=== PATIENT | female | born 1960 | race Caucasian/White ===

== ENCOUNTER 2019-07-04 08:10 | Outpatient (CLI) | payer MEDICARE, MEDICAID, SELFPAY ==
--- NOTE | 2019-07-04 08:34 | USCV_ITS ---
Yulisa Velasco Age: 58 Gender: F : 1960 Exam Date: 07/04/2019 08:49 Ordering Phys: Geno Davis MD Technologist: Hue Rothman [place] [facility] [place] CHF BP: 132 / 68 HR: 74 Rhythm: Sinus Technical Quality: Poor because of body habitus MEASUREMENTS (Male / Female) Normal Values 2D ECHO LV Diastolic Diameter PLAX 3.3 cm 4.2 - 5.9 / 3.9 - 5.3 cm LV Systolic Diameter PLAX 2.7 cm LV Chamber Size 3.6 cm IVS Diastolic Thickness 1.8 cm 0.6 - 1.0 / 0.6 - 0.9 cm IVS Systolic Thickness 2.1 cm LVPW Diastolic Thickness 1.1 cm 0.6 - 1.0 / 0.6 - 0.9 cm LVPW Systolic Thickness 1.5 cm RV Chamber Size 2.1 cm LVOT Diameter 2.0 cm LV Ejection Fraction 2D Teich 35.0 % LV Ejection Fraction MOD 2C 69.2 % LV Ejection Fraction 2C AL 69.9 % LA Diameter 4.2 cm LA Width 2.9 cm LA Height 4.7 cm RA Width 2.5 cm RA Height 3.9 cm Aorta at Sinotubular Diameter 2.7 cm M-MODE LV Diastolic Diameter MM 4.3 cm 4.2 - 5.9 / 3.9 - 5.3 cm LV Systolic Diameter MM 2.6 cm LV Ejection Fraction MM Teich 68.3 % IVS Diastolic Thickness MM 1.3 cm 0.6 - 1.0 / 0.6 - 0.9 cm IVS Systolic Thickness MM 1.7 cm LVPW Diastolic Thickness MM 1.1 cm 0.6 - 1.0 / 0.6 - 0.9 cm LVPW Systolic Thickness MM 1.0 cm Aortic Annulus Diameter 3.0 cm LA Ao Ratio MM 1.4 DOPPLER AV Peak Velocity 183.0 cm/s LVOT Peak Velocity 105.0 cm/s AV Area Cont Eq vti 2.7 cm squared AV Area Cont Eq pk 1.8 cm squared MV Area PHT 3.9 cm squared Mitral E to A Ratio 1.4 MV E' Velocity 14.0 cm/s Mitral E to MV E' Ratio 8.3 Mitral E to LV E' Lateral Ratio 8.0 Mitral E to LV E' Septal Ratio 8.7 TR Peak Velocity 147.0 cm/s TR Peak Gradient 8.7 mmHg TV Peak E Velocity 68.0 cm/s Right Atrial Pressure 3.0 mmHg Pulmonary Artery Systolic Pressu 11.6 mmHg PV Peak Velocity 96.0 cm/s RV Acceleration Time 0.1 s RV Ejection Time 0.4 s RV AcT/ET 0.4 FINDINGS Left Ventricle Normal left ventricular size and systolic function, EF 65 %. No regional wall motion abnormalities. Right Ventricle Possibly of normal size ejection fraction Right Atrium Possibly of normal size Left Atrium Possibly of normal size Mitral Valve No gross abnormalities noted Aortic Valve Thickened aortic valve. Tricuspid Valve Not visualized well Pulmonic Valve Not visualized well Pericardium No pericardial effusion. Aorta Normal aortic annulus size. CONCLUSIONS Normal left ventricular size and systolic function, EF 65 %. No regional wall motion abnormalities. Thickened aortic valve. Possibly normal chamber sizes. There itechnically difficult study because of the poor ultrasonic window. s no pericardial effusion. Dr Juan Larson MD FACC (Electronically Signed) Final Date: 05 July 2019 13:50 S
== END 2019-07-04 08:11 | disposition home or self-care (01) ==
PROVIDERS: Family Provider Family Medicine; PCP Family Medicine; Visit Provider Family Medicine
DX: I50.9 Heart failure, unspecified (principal); I35.8 Other nonrheumatic aortic valve disorders
CPT/HCPCS: 93306

== ENCOUNTER → 2019-07-25 09:14 | Outpatient (BNVA) | payer MEDICARE, MEDICAID, SELFPAY | PROVIDERS: Family Provider Family Medicine; PCP Family Medicine; Visit Provider Specialist | DX: M17.11 Unilateral primary osteoarthritis, right knee (principal); M25.561 Pain in right knee; M25.562 Pain in left knee; G89.29 Other chronic pain | CPT/HCPCS: 73560; 73565 ==

== ENCOUNTER 2019-07-27 09:15 | Outpatient (CLI) | payer MEDICARE, MEDICAID, SELFPAY ==
--- NOTE | 2019-07-27 09:27 | MM_ITS ---
WS: [id number] SCREENING DIGITAL MAMMOGRAM WITH CAD HISTORY: SCREENING COMPARISON: 04/20/2018 Bilateral CC and MLO views submitted. Computer aided detection analyzed. Breast composition: There are scattered areas of fibroglandular density. No suspicious masses, microc alcifications or architectural distortion. Benign calcifications near the LEFT nipple. MM/[id number] IMPRESSION: BI-RADS: 2-Benign FOLLOW UP: 1 Year Follow-up
== END 2019-07-27 09:16 | disposition home or self-care (01) ==
LOC: RADSHAW 09:20
PROVIDERS: Family Provider Family Medicine; PCP Family Medicine; Visit Provider Family Medicine
DX: Z12.31 Encounter for screening mammogram for malignant neoplasm of breast (principal)
CPT/HCPCS: 77067

== ENCOUNTER → 2019-08-22 12:30 | Outpatient (BNVA) | payer MEDICARE, MEDICAID, SELFPAY | PROVIDERS: Family Provider Family Medicine; PCP Family Medicine; Visit Provider Nurse Practitioner Psychiatric/Mental Health | DX: F33.1 Major depressive disorder, recurrent, moderate (principal); F41.1 Generalized anxiety disorder; F17.210 Nicotine dependence, cigarettes, uncomplicated | CPT/HCPCS: 99213 ==

== ENCOUNTER → 2019-11-23 07:39 | Outpatient (BNVA) | payer MEDICARE, MEDICAID, SELFPAY | PROVIDERS: Family Provider Family Medicine; PCP Family Medicine; Visit Provider Nurse Practitioner Psychiatric/Mental Health | DX: F33.1 Major depressive disorder, recurrent, moderate (principal); F41.1 Generalized anxiety disorder; F17.210 Nicotine dependence, cigarettes, uncomplicated | CPT/HCPCS: 99213 ==

== ENCOUNTER → 2020-02-22 08:09 | Outpatient (BNVA) | payer MEDICARE, MEDICAID, SELFPAY | PROVIDERS: Family Provider Family Medicine; PCP Family Medicine; Visit Provider Nurse Practitioner Psychiatric/Mental Health | DX: F33.1 Major depressive disorder, recurrent, moderate (principal); F41.1 Generalized anxiety disorder; F17.210 Nicotine dependence, cigarettes, uncomplicated | CPT/HCPCS: 99213 ==

== ENCOUNTER → 2020-03-21 07:42 | Outpatient (BNVA) | payer MEDICARE, MEDICAID, SELFPAY | PROVIDERS: Family Provider Family Medicine; PCP Family Medicine; Visit Provider Nurse Practitioner Psychiatric/Mental Health | DX: F33.1 Major depressive disorder, recurrent, moderate (principal); F41.1 Generalized anxiety disorder; F17.210 Nicotine dependence, cigarettes, uncomplicated | CPT/HCPCS: 99213 ==

== ENCOUNTER → 2020-04-25 07:31 | Outpatient (BNVA) | payer MEDICARE, MEDICAID, SELFPAY | PROVIDERS: Family Provider Family Medicine; PCP Family Medicine; Visit Provider Nurse Practitioner Psychiatric/Mental Health | DX: F33.1 Major depressive disorder, recurrent, moderate (principal); F41.1 Generalized anxiety disorder; F17.210 Nicotine dependence, cigarettes, uncomplicated | CPT/HCPCS: 99213 ==

== ENCOUNTER → 2020-08-07 07:50 | Outpatient (BNVA) | payer MEDICARE, MEDICAID, SELFPAY | PROVIDERS: Family Provider Family Medicine; PCP Family Medicine; Visit Provider Nurse Practitioner Psychiatric/Mental Health | DX: F33.1 Major depressive disorder, recurrent, moderate (principal); F41.1 Generalized anxiety disorder; F17.210 Nicotine dependence, cigarettes, uncomplicated | CPT/HCPCS: 99214 ==

== ENCOUNTER → 2020-08-20 15:30 | Outpatient (BNVA) | payer MEDICARE, MEDICAID, SELFPAY | PROVIDERS: Family Provider Family Medicine; PCP Family Medicine; Visit Provider Specialist | DX: M17.0 Bilateral primary osteoarthritis of knee (principal) | CPT/HCPCS: 73560; 73565 ==

== ENCOUNTER → 2020-09-03 10:16 | Outpatient (BNVA) | payer MEDICARE, MEDICAID, SELFPAY | PROVIDERS: Family Provider Family Medicine; PCP Family Medicine; Referring Provider Specialist; Visit Provider Anesthesiology Pain Medicine | DX: M17.12 Unilateral primary osteoarthritis, left knee (principal); M25.561 Pain in right knee; F17.210 Nicotine dependence, cigarettes, uncomplicated | CPT/HCPCS: 99204 ==

== ENCOUNTER → 2020-09-22 07:37 | Outpatient (BNVA) | payer MEDICARE, MEDICAID, SELFPAY | PROVIDERS: Family Provider Family Medicine; PCP Family Medicine; Visit Provider Nurse Practitioner Psychiatric/Mental Health | DX: F33.1 Major depressive disorder, recurrent, moderate (principal); F41.1 Generalized anxiety disorder; F17.210 Nicotine dependence, cigarettes, uncomplicated | CPT/HCPCS: 99214 ==

== ENCOUNTER → 2020-09-24 12:54 | Outpatient (BNVA) | payer MEDICARE, MEDICAID, SELFPAY | PROVIDERS: Family Provider Family Medicine; PCP Internal Medicine; Visit Provider Anesthesiology Pain Medicine | DX: M17.0 Bilateral primary osteoarthritis of knee (principal) | CPT/HCPCS: 20610; 77002; J1030; J3490 ==

== ENCOUNTER → 2020-10-14 10:05 | Outpatient (BNVA) | payer MEDICARE, MEDICAID, SELFPAY | PROVIDERS: Family Provider Family Medicine; PCP Internal Medicine; Visit Provider Anesthesiology Pain Medicine | DX: M25.561 Pain in right knee (principal); M25.562 Pain in left knee; F17.210 Nicotine dependence, cigarettes, uncomplicated | CPT/HCPCS: 99214 ==

== ENCOUNTER → 2020-10-23 08:15 | Outpatient (BNVA) | payer MEDICARE, MEDICAID, SELFPAY | PROVIDERS: Family Provider Family Medicine; PCP Family Medicine; Visit Provider Nurse Practitioner Psychiatric/Mental Health | DX: F41.1 Generalized anxiety disorder (principal); E66.9 Obesity, unspecified; F33.1 Major depressive disorder, recurrent, moderate; F17.210 Nicotine dependence, cigarettes, uncomplicated | CPT/HCPCS: 99214 ==

== ENCOUNTER → 2020-11-24 07:51 | Outpatient (BNVA) | payer MEDICARE, MEDICAID, SELFPAY | PROVIDERS: Family Provider Family Medicine; PCP Family Medicine; Visit Provider Nurse Practitioner Psychiatric/Mental Health | DX: F33.1 Major depressive disorder, recurrent, moderate (principal); F41.1 Generalized anxiety disorder; F17.210 Nicotine dependence, cigarettes, uncomplicated | CPT/HCPCS: 99214 ==

== ENCOUNTER → 2021-01-07 10:03 | Outpatient (BNVA) | payer MEDICARE, MEDICAID, SELFPAY | PROVIDERS: Family Provider Family Medicine; PCP Family Medicine; Visit Provider Surgery | DX: Z01.812 Encounter for preprocedural laboratory examination (principal); Z20.822 Contact with and (suspected) exposure to COVID-19; K92.1 Melena | CPT/HCPCS: 87635 ==

== ENCOUNTER 2021-01-14 06:58 | Day surgery (SDC) | payer MEDICARE, MEDICAID, SELFPAY ==
[2021-01-12 10:07] VITALS: BMI 59.4
--- NOTE | 2021-01-14 07:23 | ANES.PREANE2 ---
Pre-Anesthetic Assessment Pre-Anesthetic Assessment: Height/Weight: Height 1.57 m Weight 147.418 kg Preop Diagnosis: Bleeding per rectum Proposed Procedure: Operation Date: 01/14/21 08:30 Proposed Procedures p EGD/colon 73684 84704 K92.1(Not Applicable) - Harish Lopez MD s Colonoscopy(Not Applicable) - Harish Lopez MD Was Beta Teresita taken within 24 hours: Yes Was Clonidine taken within 24 hours: N/A Social: Social History: Tobacco and No alcohol Exam: Pre-Anes Outpt Exam: alert, oriented x 3 and regular rate & rhythm Airway: Submandibular: WNL Cervical ROM: WNL MP: 2 Dentition: False Pulmonary: Pulmonary: Asthma and COPD CV/HEM: CV/HEM: HTN Metabolic: Metabolic: Morbid obesity Neuropsych: Neuropsych: Anxiety and Depression Anesthetic Plan: ASA status: 3 Anesthesia: MAC Risk of > 500 ml blood loss (7ml/kg in children): No PFSH Anesthesia PFSH: Medical History (Updated 11/15/20 @ 10:24 by Harish Lopez MD) COPD (chronic obstructive pulmonary disease) Generalized anxiety disorder Major depressive disorder, recurrent episode, moderate with anxious distress Nicotine dependence, cigarettes, uncomplicated Obstructive sleep apnea Family History (Updated 11/12/20 @ 13:27 by BELEM Parsons) Other Cancer Diabetes Obesity Social History (Updated 11/12/20 @ 13:27 by BELEM Parsons) Smoking and tobacco status: current every day smoker cigarettes Packs smoked per day: 0.5 Alcohol intake: never Data Anesthesia Cardiac Studies: No Data to Display
--- NOTE | 2021-01-14 08:12 | W.PM.OPSFHP ---
Same Day Surgery H&P Indication for Procedure/HPI DATE OF PROCEDURE: January 14, 2021 CHIEF COMPLAINT/INDICATIONFOR SURGICAL PROCEDURE: Blood in stool PREOP DIAGNOSIS: Bleeding per rectum PLANNED PROCEDRUE: Operation Date: 01/14/21 08:30 Proposed Procedures p EGD/colon 53904 06559 K92.1(Not Applicable) - Harish Lopez MD s Colonoscopy(Not Applicable) - Harish Lopez MD This is a pleasant 60 years old female patient morbidly obese with a current weight of 325 pounds and a BMI of 59.4 is referred to my practice to discuss obesity management including weight loss surgery. Obesity class III (equal or greater than 40). Patient has been struggling with weight and has tried different modalities without obvious success, patient comes today showing interest in Bariatric surgery as a sustained option for obesity management Associated multiple medical comorbidities in the form of osteoarthritis of the right knee and left knee., Nicotine dependence uncomplicated. Generalized anxiety disorder and major depressive disorder. She reports to me that her quality of life has been affected in a nonpositive way on daily basis. Also patient is referred to me today because of history of bleeding per rectum which she reports has been going on for some time. She denies any history of peptic ulcer disease or colon cancer. Interim history 01/14/2021 Patient comes today for diagnostic EGD and colonoscopy, unfortunately patient continues to smoke ROS All systems have been reviewed negative except as per the above or per problem list Medications/Allergies* Home Medications Medication Instructions Recorded Confirmed Type albuterol sulfate 90 mcg/actuation 2 puff INHALATION Q6H PRN 08/22/19 01/12/21 History aerosol inhaler lisinopril 5 mg tablet 5 mg PO DAILY 08/22/19 01/12/21 History montelukast 10 mg tablet 10 mg PO DAILY 08/22/19 01/12/21 History potassium chloride 10 mEq 10 meq PO DAILY 08/22/19 01/12/21 History capsule,extended release furosemide 20 mg tablet 80 mg PO DAILY tab 09/18/20 01/12/21 History Allergies/Adverse Reactions Allergy/AdvReac Type Severity Reaction Status Date / Time No Known Allergies Allergy Verified 01/14/21 08:13 Pertinent History/Comorbid Conditions* Medical History (Updated 11/15/20 @ 10:24 by Harish Lopez MD) COPD (chronic obstructive pulmonary disease) Generalized anxiety disorder Major depressive disorder, recurrent episode, moderate with anxious distress Nicotine dependence, cigarettes, uncomplicated Obstructive sleep apnea Family History (Updated 11/12/20 @ 13:27 by BELEM Parsons) Diabetes Cancer Obesity Social History Smoking and tobacco status: current every day smoker cigarettes Packs smoked per day: 0.5 Alcohol intake: never Pertinent Exam Findings alert, oriented x 3, clear to auscultation bilaterally, regular rate & rhythm and procedure specific exam findings (Abdominal examination nontender nondistended soft) Recommendations Surgery/Procedure today (EGD and colonoscopy) Other Plans: Plan of care; After thorough history and physical examination and reviewing the chart, plan to perform a diagnostic esophagogastroduodenoscopy and diagnostic colonoscopy with possible biopsy and possible polypectomy. I discussed with the patient in detail the risks,benefits,alternatives and indications.The risk of aspiration, bleeding, soft tissue injury, perforation of the stomach/esophagus/colon and other potential concomitant complications were explained to the patient in details also the potential need for Thoracotomy and or Laproscoy/Laparotomy to repair any related complications including but not limited to colectomy and or Closotomy. The patient understood this well and did agree to proceed. Rationale was carefully and clearly discussed with the patient.Appropriate informed consent have been reviewed and signed Verbal and written Instructions were given to the patient for colonoscopy prep Coding Level of Care Code Acute Associate Technician for Олег Rincon
[2021-01-14 08:15] VITALS: BP 120/78; PULSE 86; RESP 20; TEMP 36.2; O2SAT 92
[2021-01-14] MEDS: sodium chloride 0.9% 1,000 ML 30 ML IV (08:27)
[2021-01-14 09:16] VITALS: BP 134/75; PULSE 91; RESP 16; TEMP 36.3; O2SAT 94
[2021-01-14 09:44] VITALS: BP 126/71; PULSE 92; RESP 18; O2SAT 93
--- NOTE | 2021-01-14 14:09 | ANE.PACU2 ---
Inpatient post-anesthesia follow up: Airway intact: Yes Vital signs: Temperature 97.3 F Pulse Rate 92 Respiratory Rate 18 Blood Pressure 126/71 Pulse Oximetry 93 Oxygen Delivery Me thod Room Air Oxygen Flow Rate Fraction of Inspir ed Oxygen Hydration adequate: Yes Nausea and vomiting: No Pain level: 1 Mental status: Baseline
[2021-01-15 15:13] LABS: H. Pylori / CLO Test Negative
== END 2021-01-14 09:48 | disposition home or self-care (01) ==
PROVIDERS: PCP Internal Medicine Rheumatology; Visit Provider Surgery
PROC: 0DJ08ZZ Inspection of Upper Intestinal Tract, Via Natural or Artificial Opening Endoscopic (ICD-10-PCS; CPT 43235; principal; 2021-01-14 08:30)
PROC: 0DJD8ZZ Inspection of Lower Intestinal Tract, Via Natural or Artificial Opening Endoscopic (ICD-10-PCS; CPT 45378; 2021-01-14 08:30)
DX: K92.1 Melena (principal); G47.33 Obstructive sleep apnea (adult) (pediatric); K21.00 Gastro-esophageal reflux disease with esophagitis, without bleeding; K29.70 Gastritis, unspecified, without bleeding; E66.01 Morbid (severe) obesity due to excess calories; Z68.43 Body mass index [BMI] 50.0-59.9, adult; J44.9 Chronic obstructive pulmonary disease, unspecified; J33.9 Nasal polyp, unspecified; F17.210 Nicotine dependence, cigarettes, uncomplicated
CPT/HCPCS: 43239; 45378; 87077; 96360; J2704; J7030

== ENCOUNTER → 2021-01-19 14:00 | Outpatient (BNVA) | payer MEDICARE, MEDICAID, SELFPAY | PROVIDERS: PCP Internal Medicine; Visit Provider Anesthesiology Pain Medicine | DX: G89.29 Other chronic pain (principal); M17.0 Bilateral primary osteoarthritis of knee; F17.210 Nicotine dependence, cigarettes, uncomplicated | CPT/HCPCS: 20610; 77002; J1030; J3490 ==

== ENCOUNTER → 2021-02-05 10:54 | Outpatient (BNVA) | payer MEDICARE, MEDICAID, SELFPAY | PROVIDERS: PCP Internal Medicine; Visit Provider Anesthesiology Pain Medicine | DX: M25.561 Pain in right knee (principal); M25.562 Pain in left knee; F17.210 Nicotine dependence, cigarettes, uncomplicated | CPT/HCPCS: 99214 ==

== ENCOUNTER → 2021-02-20 07:20 | Outpatient (BNVA) | payer MEDICARE, MEDICAID, SELFPAY | PROVIDERS: PCP Internal Medicine; Visit Provider Nurse Practitioner Psychiatric/Mental Health | DX: F33.1 Major depressive disorder, recurrent, moderate (principal); F41.1 Generalized anxiety disorder; F17.210 Nicotine dependence, cigarettes, uncomplicated | CPT/HCPCS: 99214 ==

== ENCOUNTER → 2021-04-22 08:15 | Outpatient (BNVA) | payer MEDICARE, MEDICAID, SELFPAY | PROVIDERS: PCP Internal Medicine; Visit Provider Nurse Practitioner Psychiatric/Mental Health | DX: F33.1 Major depressive disorder, recurrent, moderate (principal); F41.1 Generalized anxiety disorder; F17.210 Nicotine dependence, cigarettes, uncomplicated | CPT/HCPCS: 99214 ==

== ENCOUNTER → 2021-05-07 10:37 | Outpatient (BNVA) | payer MEDICARE, MEDICAID, SELFPAY | PROVIDERS: PCP Nurse Practitioner Family; Visit Provider Anesthesiology Pain Medicine | DX: M17.0 Bilateral primary osteoarthritis of knee (principal); E66.01 Morbid (severe) obesity due to excess calories; Z68.43 Body mass index [BMI] 50.0-59.9, adult; F17.200 Nicotine dependence, unspecified, uncomplicated | CPT/HCPCS: 99214 ==

== ENCOUNTER → 2021-06-01 12:55 | Outpatient (BNVA) | payer MEDICARE, MEDICAID, SELFPAY | PROVIDERS: PCP Nurse Practitioner Family; Visit Provider Anesthesiology Pain Medicine | DX: Z01.812 Encounter for preprocedural laboratory examination (principal); E11.9 Type 2 diabetes mellitus without complications; M25.561 Pain in right knee; M25.562 Pain in left knee | CPT/HCPCS: 20610; 36416; 77002; 82962; J1030 ==

== ENCOUNTER → 2021-06-22 08:50 | Outpatient (BNVA) | payer MEDICARE, MEDICAID, SELFPAY | PROVIDERS: PCP Nurse Practitioner Family; Visit Provider Anesthesiology Pain Medicine | DX: M17.0 Bilateral primary osteoarthritis of knee (principal); E66.01 Morbid (severe) obesity due to excess calories; Z68.43 Body mass index [BMI] 50.0-59.9, adult | CPT/HCPCS: 99214 ==

== ENCOUNTER → 2021-06-24 07:54 | Outpatient (BNVA) | payer MEDICARE, MEDICAID, SELFPAY | PROVIDERS: PCP Nurse Practitioner Family; Visit Provider Nurse Practitioner Psychiatric/Mental Health | DX: F33.1 Major depressive disorder, recurrent, moderate (principal); F41.1 Generalized anxiety disorder; F17.210 Nicotine dependence, cigarettes, uncomplicated | CPT/HCPCS: 99214 ==

== ENCOUNTER 2021-06-29 12:36 | Outpatient (CLI) | payer MEDICARE, MEDICAID, SELFPAY ==
--- NOTE | 2021-06-29 13:13 | MM_ITS ---
WS: [email or web address] BILATERAL DIGITAL SCREENING MAMMOGRAPHY WITH CAD CLINICAL INFORMATION: SCREENING HISTORY: Screening mammogram. No current complaints. COMPARISON: July 27, 2019 TECHNIQUE: Bilateral CC and MLO views. FINDINGS: Scattered fibroglandular densities bilaterally. A few tiny punctate calcifications. No suspicious foc al mass, asymmetry, calcifications, or architectural distortion. No evidence of malignancy. MM/[id number] IMPRESSION: BI-RADS: 2-Benign FOLLOW UP: 1 Year Follow-up Recommend return to annual screening mammography.
== END 2021-06-29 12:37 | disposition home or self-care (01) ==
PROVIDERS: PCP Nurse Practitioner Family; Visit Provider Internal Medicine
DX: Z12.31 Encounter for screening mammogram for malignant neoplasm of breast (principal)
CPT/HCPCS: 77067

== ENCOUNTER → 2021-07-29 07:28 | Outpatient (BNVA) | payer MEDICARE, MEDICAID, SELFPAY | PROVIDERS: PCP Nurse Practitioner Family; Visit Provider Nurse Practitioner Psychiatric/Mental Health | DX: Z63.4 Disappearance and death of family member (principal); F33.1 Major depressive disorder, recurrent, moderate; F41.1 Generalized anxiety disorder; F17.210 Nicotine dependence, cigarettes, uncomplicated | CPT/HCPCS: 99214 ==

== ENCOUNTER → 2021-08-24 10:07 | Outpatient (BNVA) | payer MEDICARE, MEDICAID, SELFPAY | PROVIDERS: PCP Nurse Practitioner Family; Visit Provider Social Worker | DX: F33.1 Major depressive disorder, recurrent, moderate (principal); F41.1 Generalized anxiety disorder | CPT/HCPCS: 90791 ==

== ENCOUNTER → 2021-08-28 07:32 | Outpatient (BNVA) | payer MEDICARE, MEDICAID, SELFPAY | PROVIDERS: PCP Nurse Practitioner Family; Visit Provider Nurse Practitioner Psychiatric/Mental Health | DX: F33.1 Major depressive disorder, recurrent, moderate (principal); F17.210 Nicotine dependence, cigarettes, uncomplicated; F41.1 Generalized anxiety disorder | CPT/HCPCS: 99214 ==

== ENCOUNTER → 2021-09-21 09:10 | Outpatient (BNVA) | payer MEDICARE, MEDICAID, SELFPAY | PROVIDERS: PCP Nurse Practitioner Family; Visit Provider Anesthesiology Pain Medicine | DX: M17.0 Bilateral primary osteoarthritis of knee (principal); E66.01 Morbid (severe) obesity due to excess calories; F17.210 Nicotine dependence, cigarettes, uncomplicated; Z68.43 Body mass index [BMI] 50.0-59.9, adult | CPT/HCPCS: 99214 ==

== ENCOUNTER → 2021-09-23 09:53 | Outpatient (BNVA) | payer MEDICARE, MEDICAID, SELFPAY | PROVIDERS: PCP Nurse Practitioner Family; Visit Provider Social Worker | DX: F41.1 Generalized anxiety disorder (principal); F33.1 Major depressive disorder, recurrent, moderate; Z63.4 Disappearance and death of family member | CPT/HCPCS: 90834 ==

== ENCOUNTER → 2021-10-21 10:01 | Outpatient (BNVA) | payer MEDICARE, MEDICAID, SELFPAY | PROVIDERS: PCP Nurse Practitioner Family; Referring Provider Nurse Practitioner Family; Visit Provider Podiatrist Foot & Ankle Surgery | DX: L60.8 Other nail disorders (principal); E11.9 Type 2 diabetes mellitus without complications; L60.3 Nail dystrophy; F17.210 Nicotine dependence, cigarettes, uncomplicated | CPT/HCPCS: 99203; 99204 ==

== ENCOUNTER → 2021-10-23 07:11 | Outpatient (BNVA) | payer MEDICARE, MEDICAID, SELFPAY | PROVIDERS: PCP Nurse Practitioner Family; Visit Provider Nurse Practitioner Psychiatric/Mental Health | DX: Z63.4 Disappearance and death of family member (principal); F33.1 Major depressive disorder, recurrent, moderate; F41.1 Generalized anxiety disorder; F17.210 Nicotine dependence, cigarettes, uncomplicated | CPT/HCPCS: 99214 ==

== ENCOUNTER → 2021-11-30 13:34 | Outpatient (BNVA) | payer MEDICARE, MEDICAID, SELFPAY | PROVIDERS: PCP Nurse Practitioner Family; Visit Provider Anesthesiology Pain Medicine | DX: M17.0 Bilateral primary osteoarthritis of knee; E11.9 Type 2 diabetes mellitus without complications; Z79.84 Long term (current) use of oral hypoglycemic drugs | CPT/HCPCS: 20610; 36416; 77002; 82962; J1040; J3490 ==

== ENCOUNTER → 2022-01-20 09:34 | Outpatient (BNVA) | payer MEDICARE, MEDICAID, SELFPAY | PROVIDERS: PCP Nurse Practitioner Family; Visit Provider Anesthesiology Pain Medicine | DX: F17.210 Nicotine dependence, cigarettes, uncomplicated (principal); Z68.43 Body mass index [BMI] 50.0-59.9, adult; M51.16 Intervertebral disc disorders with radiculopathy, lumbar region; E66.01 Morbid (severe) obesity due to excess calories; M17.0 Bilateral primary osteoarthritis of knee | CPT/HCPCS: 99214 ==

== ENCOUNTER 2022-02-05 13:25 | Outpatient (CLI) | payer MEDICARE, MEDICAID, SELFPAY ==
--- NOTE | 2022-02-05 13:45 | MR_ITS ---
WS: [id number] MRI LUMBAR SPINE NONCONTRAST TECHNIQUE: Sagittal T1, T2 and STIR imaging. Axial T1 and T2 imaging. CLINICAL INFORMATION: M48.062 - Spinal stenosis, lumbar region with neurogenic ... COMPARISON: None. FINDINGS: Straightening of the normal cervical lordosis. On the job change crew member imaging, prominent central protrusion C4- C5 with moderate central canal stenosis and indentation on cervical cord. This can be further evaluat ed with cervical spine MRI. Mild central canal stenosis C5-C6 and C6-C7. L1-L2: Mild annular bulging eccentric to the LEFT. Slight narrowing of the LEFT subarticular recess. Mild facet arthropathy. Spinal canal and foramen are patent L2-L3: Mild annular bulging. Mild facet arthropathy. Mild LEFT and no significant RIGHT foraminal velia rowing. Spinal canal is patent L3-L4: Mild annular bulging with slight effacement of ventral thecal sac. Narrowing of the subarticul ar recess bilaterally. Mild LEFT greater than RIGHT foraminal narrowing. L4-L5: Disc osteophytic ridging with slight anterolisthesis. Slight impingement on the RIGHT subartic ular recess and traversing RIGHT L5 nerve root. Mild LEFT greater than RIGHT foraminal narrowing with slight impingement on the exiting LEFT L4 nerve root. Moderate facet arthropathy. L5-S1: Mild annular bulging with osteophytic ridging. LEFT eccentric disc osteophyte protrusion sligh tly impinges the exiting LEFT L5 nerve root. Mild RIGHT foraminal narrowing. Mild facet arthropathy. Visualized pelvic bony structures: Normal. Paravertebral soft tissues: Normal. MR/MR lumbar spine wo con* [id number] IMPRESSION: 1. Mild lumbar curve. No acute compression. No high-grade central canal stenos is. 2. Slight anterolisthesis L4 on L5 with slight impingement on the RIGHT subart icular recess and traversing RIGHT L5 nerve root. Recommend correlation for RIG HT L5 nerve root symptoms. 3. Mild LEFT greater than RIGHT L4-L5 foraminal narrowing with slight contact of the exiting LEFT L4 nerve root. 4. Small LEFT foraminal protrusion L5-S1 slightly impinges the exiting LEFT L5 nerve root. 5. Moderate facet arthropathy L4-L5. 6. Prominent central protrusion cervical spine job change crew member imaging at C4-C5 with mod erate central canal stenosis. This could be further evaluated with cervical spi ne MRI.
== END 2022-02-05 13:26 | disposition home or self-care (01) ==
PROVIDERS: PCP Nurse Practitioner Family; Visit Provider Anesthesiology Pain Medicine
DX: M48.062 Spinal stenosis, lumbar region with neurogenic claudication (principal); M51.27 Other intervertebral disc displacement, lumbosacral region; M47.816 Spondylosis without myelopathy or radiculopathy, lumbar region; M50.221 Other cervical disc displacement at C4-C5 level
CPT/HCPCS: 72148

== ENCOUNTER → 2022-03-17 08:45 | Outpatient (BNVA) | payer MEDICAID, SELFPAY | PROVIDERS: PCP Nurse Practitioner Family; Visit Provider Anesthesiology Pain Medicine | DX: M51.16 Intervertebral disc disorders with radiculopathy, lumbar region (principal); M17.0 Bilateral primary osteoarthritis of knee; E66.01 Morbid (severe) obesity due to excess calories; E11.9 Type 2 diabetes mellitus without complications; F17.210 Nicotine dependence, cigarettes, uncomplicated; Z68.43 Body mass index [BMI] 50.0-59.9, adult | CPT/HCPCS: 36415; 80048; 99214 ==

== ENCOUNTER → 2022-03-22 14:01 | Outpatient (BNVA) | payer MEDICARE, MEDICAID, SELFPAY | PROVIDERS: PCP Nurse Practitioner Family; Visit Provider Podiatrist Foot & Ankle Surgery | DX: L60.8 Other nail disorders (principal); B35.1 Tinea unguium | CPT/HCPCS: 99214 ==

== ENCOUNTER 2022-04-21 11:41 | Outpatient (CLI) | payer MEDICARE, MEDICAID, SELFPAY ==
--- NOTE | 2022-04-21 11:45 | MR_ITS ---
WS: [id number] MRI CERVICAL SPINE NONCONTRAST HISTORY: M54.12 - Radiculopathy, cervical region COMPARISON: None available. Technique: Multiplanar, multisequence noncontrast imaging of the cervical spine. Straightening and slight reversal the normal cervical lordosis. Reversal centered at C4-5. There is a disc protrusion at C4-5 contacting and posteriorly displacing the cervical cord. No cord atrophy or edema. Mild disc space narrowing and desiccation. No fractures. Craniocervical junction, C1 and C2 relationship, odontoid process and soft tissues are normal. C2-C3: Normal. C3-C4: Mild osteophytic ridging with a very shallow central disc protrusion. Very minimal bilateral f oraminal narrowing due to osteophyte disease. C4-C5: Moderate size central disc protrusion and small circumferential osteophytes. Contact and displ acement of the cervical cord. Moderate central with mild foraminal stenosis. C5-C6: Mild osteophytic ridging and small central disc protrusion. Mild bilateral foraminal narrowing . Mild central narrowing. C6-C7: Moderate size central disc protrusion and osteophytic ridging with mild facet arthritis. Small bilateral foraminal osteophytes. Mild central stenosis. C7-T1: Normal. 14 mm RIGHT thyroid nodule. MR/MR cervical spin wo con* [id number] IMPRESSION: 1. Moderate size central disc protrusion and circumferential osteophytes at C4 -5. Moderate central stenosis with mild foraminal stenosis. The disc does conta ct and displace the cervical cord. 2. Moderate size central disc protrusion at C6-7. Mild central and bilateral f oraminal stenosis due to disc and osteophyte disease. 3. Mild central and bilateral foraminal narrowing at C5-6 due to small disc pr otrusion and osteophytes.
== END 2022-04-21 11:42 | disposition home or self-care (01) ==
PROVIDERS: PCP Nurse Practitioner Family; Visit Provider Anesthesiology Pain Medicine
DX: M50.121 Cervical disc disorder at C4-C5 level with radiculopathy (principal); M48.02 Spinal stenosis, cervical region; M25.78 Osteophyte, vertebrae
CPT/HCPCS: 72141

== ENCOUNTER → 2022-05-19 10:49 | Outpatient (BNVA) | payer MEDICARE, MEDICAID, SELFPAY | PROVIDERS: PCP Nurse Practitioner Family; Visit Provider Anesthesiology Pain Medicine | DX: M51.16 Intervertebral disc disorders with radiculopathy, lumbar region (principal); M54.2 Cervicalgia; M17.0 Bilateral primary osteoarthritis of knee; E66.01 Morbid (severe) obesity due to excess calories; F17.210 Nicotine dependence, cigarettes, uncomplicated; Z68.43 Body mass index [BMI] 50.0-59.9, adult | CPT/HCPCS: 99214 ==

== ENCOUNTER → 2022-06-23 13:33 | Outpatient (BNVA) | payer MEDICAID, SELFPAY | PROVIDERS: PCP Nurse Practitioner Family; Visit Provider Podiatrist Foot & Ankle Surgery | DX: B35.3 Tinea pedis (principal); L60.8 Other nail disorders; B35.1 Tinea unguium | CPT/HCPCS: 99213 ==

== ENCOUNTER → 2022-07-05 13:04 | Outpatient (BNVA) | payer MEDICARE, MEDICAID, SELFPAY | PROVIDERS: PCP Nurse Practitioner Family; Visit Provider Anesthesiology Pain Medicine | DX: M47.816 Spondylosis without myelopathy or radiculopathy, lumbar region (principal) | CPT/HCPCS: 64493; 64494; 64495; J3490 ==

== ENCOUNTER → 2022-08-04 10:52 | Outpatient (BNVA) | payer MEDICARE, MEDICAID, SELFPAY | PROVIDERS: PCP Nurse Practitioner Family; Visit Provider Anesthesiology Pain Medicine | DX: M54.2 Cervicalgia (principal); M17.0 Bilateral primary osteoarthritis of knee; M51.16 Intervertebral disc disorders with radiculopathy, lumbar region; E66.01 Morbid (severe) obesity due to excess calories; Z68.43 Body mass index [BMI] 50.0-59.9, adult | CPT/HCPCS: 99214 ==

== ENCOUNTER 2022-08-13 10:13 | Outpatient (CLI) | payer MEDICARE, MEDICAID, SELFPAY ==
--- NOTE | 2022-08-13 10:41 | MM_ITS ---
WS: [id number] VIEWS: MLO and CC views both breasts. 3D digital tomosynthesis is also included in this exam. Comparison made with prior exam of 04/20/2018, 07/27/2019, 06/29/2021.. Findings: There was no sign of mass, architectural distortion or suspicious calcification in either breast. Fa tty MM/[place] [id number] Impression: BI-RADS: 2-Benign FOLLOW-UP: 1 Year Follow-up This mammogram was also analyzed by the Computer Aided Detection System R2 Imag e Harness Repairer.
== END 2022-08-13 10:14 | disposition home or self-care (01) ==
PROVIDERS: PCP Nurse Practitioner Family; Visit Provider Nurse Practitioner Family
DX: Z12.31 Encounter for screening mammogram for malignant neoplasm of breast (principal)
CPT/HCPCS: 77063; 77067

== ENCOUNTER → 2022-09-06 15:27 | Outpatient (BNVA) | payer MEDICARE, MEDICAID, SELFPAY | PROVIDERS: PCP Nurse Practitioner Family; Visit Provider Anesthesiology Pain Medicine | DX: M17.0 Bilateral primary osteoarthritis of knee (principal) | CPT/HCPCS: 20610; 77002; J1030; J3490 ==

== ENCOUNTER 2022-09-17 10:56 | Outpatient (CLI) | payer MEDICARE, MEDICAID, SELFPAY ==
--- NOTE | 2022-09-17 11:05 | CT_ITS ---
WS: [email or web address] LDCT LUNG CANCER SCREENING HISTORY: NICOTINE Dependence, cigarettes TECHNIQUE: Axial imaging performed from the apices to 1 cm below the costophrenic angles. Coronal and sagittal reformats are submitted with axial MIP series. All CT scans at [facility] use at least one of these dose optimization techniques: automated exposure control; mA and/or kV adjustment per patient size (includes targeted exams where dose is matched to clinical indication); or iterativ e reconstruction. DLP: 80.47 mGy.cm DIvol: Mean CTDIvol: 1.60 (mGy) COMPARISON: None available. Diagnostic quality: Quality is significantly compromised by body habitus. Motion artifact. Lungs: No pulmonary nodule or endobronchial lesions. Small lesions would be difficult to visualize du e to the suboptimal image quality. Heart: Normal size heart with no pericardial effusion.. Other findings: Mild atherosclerosis aorta. Marked hepatic steatosis. Prior cholecystectomy. CT/CT lung screening [id number] IMPRESSION: LUNG-RADS: 1-Negative FOLLOW UP: 12 Month: Continue annual screening with LDCT OTHER FINDINGS (S MODIFIER): None.
== END 2022-09-17 10:57 | disposition home or self-care (01) ==
PROVIDERS: PCP Nurse Practitioner Family; Visit Provider Nurse Practitioner Family
DX: Z12.2 Encounter for screening for malignant neoplasm of respiratory organs (principal); F17.210 Nicotine dependence, cigarettes, uncomplicated
CPT/HCPCS: 71271

== ENCOUNTER → 2022-09-22 09:36 | Outpatient (BNVA) | payer MEDICARE, MEDICAID, SELFPAY | PROVIDERS: PCP Nurse Practitioner Family; Visit Provider Anesthesiology Pain Medicine | DX: M51.16 Intervertebral disc disorders with radiculopathy, lumbar region (principal); M17.0 Bilateral primary osteoarthritis of knee; M54.2 Cervicalgia; E66.01 Morbid (severe) obesity due to excess calories; Z68.43 Body mass index [BMI] 50.0-59.9, adult | CPT/HCPCS: 99214 ==

== ENCOUNTER 2022-11-18 06:00 | Outpatient (RCR) | payer MEDICARE, MEDICAID, SELFPAY | END 2022-12-17 23:59 | disposition home or self-care (01) | LOC: SPT 06:00 | PROVIDERS: Visit Provider Nurse Practitioner Family | DX: I87.2 Venous insufficiency (chronic) (peripheral) (principal) | CPT/HCPCS: 29581; 97140; 97161 ==

== ENCOUNTER 2022-12-24 06:00 | Outpatient (RCR) | payer MEDICARE, MEDICAID, SELFPAY | END 2023-01-17 23:59 | disposition home or self-care (01) | LOC: SPT 06:00 | PROVIDERS: Visit Provider Nurse Practitioner Family | DX: I89.0 Lymphedema, not elsewhere classified (principal) | CPT/HCPCS: 97164 ==

== ENCOUNTER 2022-12-29 20:00 | Outpatient (CLI) | payer MEDICARE, MEDICAID, SELFPAY | END 2022-12-29 20:01 | disposition home or self-care (01) | LOC: SLEEP 12-30 06:25 | PROVIDERS: Visit Provider Nurse Practitioner Family | DX: M17.0 Bilateral primary osteoarthritis of knee (principal); M54.2 Cervicalgia; M51.16 Intervertebral disc disorders with radiculopathy, lumbar region; E66.01 Morbid (severe) obesity due to excess calories; G47.33 Obstructive sleep apnea (adult) (pediatric); G47.10 Hypersomnia, unspecified; G47.36 Sleep related hypoventilation in conditions classified elsewhere | CPT/HCPCS: 95810; 99214 ==

== ENCOUNTER → 2023-04-06 09:06 | Outpatient (BNVA) | payer MEDICARE, MEDICAID, SELFPAY | PROVIDERS: Visit Provider Anesthesiology Pain Medicine | DX: M17.0 Bilateral primary osteoarthritis of knee; E66.01 Morbid (severe) obesity due to excess calories; M51.16 Intervertebral disc disorders with radiculopathy, lumbar region; Z68.43 Body mass index [BMI] 50.0-59.9, adult; M54.2 Cervicalgia | CPT/HCPCS: 99214 ==

== ENCOUNTER → 2023-05-02 10:18 | Outpatient (BNVA) | payer MEDICARE, MEDICAID, SELFPAY | PROVIDERS: Visit Provider Anesthesiology Pain Medicine | DX: M17.0 Bilateral primary osteoarthritis of knee (principal); M54.2 Cervicalgia; E66.01 Morbid (severe) obesity due to excess calories; M51.16 Intervertebral disc disorders with radiculopathy, lumbar region; Z68.42 Body mass index [BMI] 45.0-49.9, adult | CPT/HCPCS: 20610; 99214; J1030; J3490 ==

== ENCOUNTER 2023-09-05 08:46 | Outpatient (CLI) | payer MEDICARE, OTHER, SELFPAY ==
--- NOTE | 2023-09-05 08:52 | MM_ITS ---
WS: [email or web address] BILATERAL SCREENING DIGITAL TOMOSYNTHESIS MAMMOGRAM WITH CAD HISTORY: SCREENING COMPARISON: 08/13/2022 and 06/29/2021 Bilateral CC and MLO views with tomosynthesis and synthetic mammography submitted. Computer aided det ection analyzed. Breast composition: There are scattered areas of fibroglandular density. No suspicious masses, microc alcifications or architectural distortion. Benign calcifications in each breast. IMPRESSION: MM/[place] [id number] BI-RADS: 2-Benign FOLLOW UP: 1 Year Follow-up
== END 2023-09-05 08:47 | disposition home or self-care (01) ==
LOC: RAD 08:48
PROVIDERS: PCP Internal Medicine; Visit Provider Internal Medicine
DX: Z12.31 Encounter for screening mammogram for malignant neoplasm of breast (principal)
CPT/HCPCS: 77063; 77067

== ENCOUNTER → 2023-10-13 14:17 | Outpatient (BNVA) | payer MEDICARE, OTHER, SELFPAY | PROVIDERS: PCP Internal Medicine; Visit Provider Anesthesiology Pain Medicine | DX: M17.0 Bilateral primary osteoarthritis of knee (principal); M54.2 Cervicalgia; E66.01 Morbid (severe) obesity due to excess calories; M51.16 Intervertebral disc disorders with radiculopathy, lumbar region; Z79.85 Long-term (current) use of injectable non-insulin antidiabetic drugs | CPT/HCPCS: 20610; 99214; J1010; J3490 ==

== ENCOUNTER → 2023-11-17 13:41 | Outpatient (BNVA) | payer MEDICARE, MEDICAID, SELFPAY | PROVIDERS: PCP Internal Medicine; Referring Provider Family Medicine; Visit Provider Surgery | DX: K92.2 Gastrointestinal hemorrhage, unspecified (principal) | CPT/HCPCS: 99214 ==

== ENCOUNTER 2023-11-23 08:50 | Outpatient (CLI) | payer MEDICARE, MEDICAID, SELFPAY ==
--- NOTE | 2023-11-23 09:06 | USCV_ITS ---
RodYulisa mckeon Age: 63 Gender: F : 1960 Exam Date: 11/23/2023 09:15 Ordering Phys: Sonia Wheeler DO Technologist: Exam Location: [facility] [place] Indication: sob chest pain BP: 125 / 75 HR: 97 Rhythm: Sinus Technical Quality: Adequate MEASUREMENTS (Male / Female) Normal Values 2D ECHO LV Diastolic Diameter PLAX 5.2 cm 4.2 - 5.9 / 3.9 - 5.3 cm IVS Diastolic Thickness 0.9 cm 0.6 - 1.0 / 0.6 - 0.9 cm IVS Systolic Thickness 1.7 cm LVPW Diastolic Thickness 1.3 cm 0.6 - 1.0 / 0.6 - 0.9 cm LVPW Systolic Thickness 1.6 cm LVOT Diameter 2.0 cm LV Ejection Fraction 2D Teich 68.4 % LV Ejection Fraction MOD 2C 53.8 % LV Ejection Fraction 2C AL 54.7 % LA Diameter 3.0 cm RA Systolic Volume 4C AL 42.4 ml RA Systolic Volume 4C MOD 41.5 ml LA Sys Volume AL 75.5 cm cubed LA Sys Volume Index AL 32.0 cm cubed/m squared Aorta at Sinotubular Diameter 2.3 cm IVC Diameter 1.5 cm M-MODE LA Ao Ratio MM 1.3 AV Cusp Separation MM 2.4 cm DOPPLER AV Peak Velocity 165.0 cm/s LVOT Peak Velocity 114.0 cm/s AV Area Cont Eq vti 2.9 cm squared AV Area Cont Eq pk 2.3 cm squared MV Peak Velocity 124.0 cm/s MV Area PHT 5.1 cm squared Mitral E to A Ratio 1.0 TR Peak Velocity 176.0 cm/s TR Peak Gradient 12.4 mmHg TV Peak E Velocity 116.0 cm/s Right Atrial Pressure 3.0 mmHg Pulmonary Artery Systolic Pressu 15.4 mmHg PV Peak Velocity 124.0 cm/s FINDINGS Left Ventricle Left ventricle is normal size. LV systolic function is normal with EF of 55 to 60%. No regional wall motion abnormalities are seen. Right Ventricle Normal in size and function. Right Atrium Normal in size Left Atrium Normal in size Mitral Valve Structurally normal mitral valve. Trace mitral regurgitation. Aortic Valve Aortic valve is thickened. No significant stenosis or regurgitation. Tricuspid Valve Insufficient TR jet to calculate RVSP. Pulmonic Valve Not well-visualized. Pericardium Normal Aorta Normal in size IVC Appears to be normal CONCLUSIONS LV systolic function is normal with EF 55 to 60%. Trace mitral regurgitation Compared to prior echocardiogram from 2019, no significant changes are seen Tyler Brooks MD (Electronically Signed) Final Date: 03 December 2023 22:11 S
== END 2023-11-23 08:51 | disposition home or self-care (01) ==
LOC: RAD 08:51
PROVIDERS: PCP Internal Medicine; Visit Provider Family Medicine
DX: F17.210 Nicotine dependence, cigarettes, uncomplicated (principal); I35.2 Nonrheumatic aortic (valve) stenosis with insufficiency
CPT/HCPCS: 93306

== ENCOUNTER 2023-11-23 08:50 | Outpatient (CLI) | payer MEDICARE, MEDICAID, SELFPAY ==
--- NOTE | 2023-11-23 08:56 | CT_ITS ---
WS: [email or web address] LDCT LUNG CANCER SCREENING HISTORY: NICOTINE DEPENDENCE,CIGARETTES TECHNIQUE: Axial imaging performed from the apices to 1 cm below the costophrenic angles. Coronal and sagittal reformats are submitted with axial MIP series. All CT scans at [facility] use at least one of these dose optimization techniques: automated exposure control; mA and/or kV adjustment per patient size (includes targeted exams where dose is matched to clinical indication); or iterativ e reconstruction. DLP: 164.60 mGy.cm DIvol: Mean CTDIvol: 4.40 (mGy) COMPARISON: 09/17/2022 Diagnostic quality: Satisfactory Lungs: Well aerated lungs. No pulmonary mass or nodule. No pneumonia. Micronodule periphery LEFT uppe r lobe, image 68 of series 5. Heart: Normal size heart with no pericardial effusion.. Other findings: Very minimal atherosclerosis aorta. No mediastinal or hilar adenopathy. Small hiatal hernia. Hepatic steatosis. Prior cholecystectomy. Normal adrenal glands. CT/CT lung screening [id number] IMPRESSION: LUNG-RADS: 2-Benign Appearance or Behavior FOLLOW UP: 12 Month: Continue annual screening with LDCT OTHER FINDINGS (S MODIFIER): None.
== END 2023-11-23 08:51 | disposition home or self-care (01) ==
LOC: RAD 08:51
PROVIDERS: PCP Internal Medicine; Visit Provider Family Medicine
DX: Z13.83 Encounter for screening for respiratory disorder NEC (principal); F17.210 Nicotine dependence, cigarettes, uncomplicated
CPT/HCPCS: 71271

== ENCOUNTER → 2023-12-07 10:48 | Outpatient (BNVA) | payer MEDICARE, MEDICAID, SELFPAY | PROVIDERS: PCP Internal Medicine; Visit Provider Anesthesiology Pain Medicine | DX: M54.2 Cervicalgia; M17.0 Bilateral primary osteoarthritis of knee; E66.01 Morbid (severe) obesity due to excess calories; M51.16 Intervertebral disc disorders with radiculopathy, lumbar region; Z68.42 Body mass index [BMI] 45.0-49.9, adult | CPT/HCPCS: 99214 ==

== ENCOUNTER 2024-03-07 07:33 | Day surgery (SDC) | payer MEDICARE, MEDICAID, SELFPAY ==
--- NOTE | 2024-03-07 01:55 | ANES.PREANE2 ---
Pre-Anesthetic Assessment Height/Weight: Height 5 ft 2 in Preop Diagnosis: screening colonoscopy Operation Date: 03/07/24 08:45 Proposed Procedures p EGD - 74533 , 47730, G0105 , K92.2(Not Applicable) - Julio Goncalves DO s Colonoscopy- [id number](Not Applicable) - Julio Goncalves DO Was Beta Teresita taken within 24 hours: N/A Was Clonidine taken within 24 hours: N/A Social Tobacco and No alcohol Exam alert, oriented x 3, clear to auscultation bilaterally and regular rate & rhythm Airway Submandibular: within normal limits Cervical ROM: within normal limits Mallampati: Class IV Dentition: false Anesthetic Plan ASA status: 3 Anesthesia: MAC Other: No prior issues with anesthesia History of type 2 diabetes Seasonal allergies Takes Lasix daily, will obtain potassium level Also takes Ozempic, last taken2 weeks ago BMI47 Plan for MAC anesthetic Medications/Allergies Home Medications Medication Instructions Recorded Confirmed Last Taken Type montelukast 10 mg tablet 10 mg PO DAILY 08/22/19 03/05/24 03/05/24 History (Singulair) potassium chloride 10 mEq 10 meq PO DAILY 08/22/19 03/05/24 03/05/24 History capsule,extended release losartan 50 mg tablet 50 mg PO DAILY 04/21/21 03/05/24 03/05/24 History metformin 750 mg tablet,extended 750 mg PO DAILY 07/29/21 03/05/24 03/05/24 History release 24 hr MOBILITY SCOOTER #1 ea 03/17/22 12/07/23 Unknown Rx ozempic See Rx Instructions .Route .COMPLEX 12/29/22 03/05/24 02/19/24 History alprazolam 1 mg tablet 1 mg PO TID PRN anxiety #90 tabs 02/21/24 03/05/24 03/04/24 Rx aripiprazole 2 mg tablet (Abilify) 2 mg PO QAM #90 tabs 02/21/24 03/05/24 03/05/24 Rx bupropion HCl 150 mg 24 hr tablet, 150 mg PO QAM #90 tabs 02/21/24 03/05/24 03/05/24 Rx extended release (Wellbutrin XL) aspirin 500 mg tablet 2,000 mg PO DAILY 03/01/24 03/05/24 03/01/24 History furosemide 40 mg tablet 100 mg PO DAILY 03/05/24 03/05/24 03/05/24 History simvastatin 20 mg tablet 20 mg PO DAILY 03/05/24 03/05/24 03/05/24 History Allergies Allergy/AdvReac Type Severity Reaction Status Date / Time No Known Allergies Allergy Verified 03/07/24 07:50 [facility] Anesthesia Medical History Depression Hypertension History of NC (myocardial infarction) In her 30s History of DVT (deep vein thrombosis) as a teenager Diabetes Bereavement Sudden loss of son, February 09, 2020 Sudden loss of brother, August 21, 2022 Psychiatric care GERD (gastroesophageal reflux disease) Gastritis Bleeding per rectum Obstructive sleep apnea COPD (chronic obstructive pulmonary disease) Nicotine dependence, cigarettes, uncomplicated Generalized anxiety disorder Major depressive disorder, recurrent episode, moderate with anxious distress Surgical History History of hysterectomy History of cholecystectomy History of surgery on right wrist Family History Other Cancer Diabetes Obesity Social History Smoking and tobacco/nicotine status: current every day tobacco/nicotine user cigarettes Packs smoked per day: 0.5 Alcohol intake: never Substance/Drug Use: never Data Anesthesia Cardiac Studies: Echocardiogram 11/23/23 Echocardiogram Ultrasound 07/04/19
[2024-03-07 07:53] VITALS: BP 146/85; PULSE 69; RESP 18; TEMP 36.4; O2SAT 95; BMI 47.7
[2024-03-07] MEDS: sodium chloride 0.9% 1,000 ML 30 ML IV (08:04)
[2024-03-07 08:28] LABS: Glucose Point of Care 119 mg/dL (70-110)
[2024-03-07 08:31] LABS: Potassium 3.9 mmol/L (3.5-5.1)
--- NOTE | 2024-03-07 08:49 | P.HP_ITS ---
Providers/Chief Complaint 2 Primary Care Provider: Alecia Trevino MD Chief Complaint: K92.2 History of Present Illness Yulisa Velasco is a 63 year old female Review of Systems 2 General: Reports: 10 or more systems reviewed and unremarkable except in HPI and below Medications/Allergies Home Medications Medication Instructions Recorded Confirmed Last Taken Type montelukast 10 mg tablet 10 mg PO DAILY 08/22/19 03/05/24 03/06/24 History (Singulair) potassium chloride 10 mEq 10 meq PO DAILY 08/22/19 03/05/24 03/06/24 History capsule,extended release losartan 50 mg tablet 50 mg PO DAILY 04/21/21 03/05/24 03/06/24 History metformin 750 mg tablet,extended 750 mg PO DAILY 07/29/21 03/05/24 03/06/24 History release 24 hr MOBILITY SCOOTER #1 ea 03/17/22 12/07/23 Unknown Rx ozempic See Rx Instructions .Route .COMPLEX 12/29/22 03/05/24 02/22/24 History alprazolam 1 mg tablet 1 mg PO TID PRN anxiety #90 tabs 02/21/24 03/07/24 03/06/24 Rx aripiprazole 2 mg tablet (Abilify) 2 mg PO QAM #90 tabs 02/21/24 03/05/24 03/06/24 Rx bupropion HCl 150 mg 24 hr tablet, 150 mg PO QAM #90 tabs 02/21/24 03/05/24 03/06/24 Rx extended release (Wellbutrin XL) aspirin 500 mg tablet 2,000 mg PO DAILY 03/01/24 03/05/24 03/03/24 History furosemide 40 mg tablet 100 mg PO DAILY 03/05/24 03/05/24 03/06/24 History simvastatin 20 mg tablet 20 mg PO DAILY 03/05/24 03/05/24 03/06/24 History Allergies Allergy/AdvReac Type Severity Reaction Status Date / Time No Known Allergies Allergy Verified 03/07/24 07:50 PFSH Acute 2 PFSH: Medical History Depression Hypertension History of [place] (myocardial infarction) In her 30s History of DVT (deep vein thrombosis) as a teenager Diabetes Bereavement Sudden loss of son, February 09, 2020 Sudden loss of brother, August 21, 2022 Psychiatric care GERD (gastroesophageal reflux disease) Gastritis Bleeding per rectum Obstructive sleep apnea COPD (chronic obstructive pulmonary disease) Nicotine dependence, cigarettes, uncomplicated Generalized anxiety disorder Major depressive disorder, recurrent episode, moderate with anxious distress Surgical History History of hysterectomy History of cholecystectomy History of surgery on right wrist Family History Other Cancer Diabetes Obesity Social History Smoking and tobacco/nicotine status: current every day tobacco/nicotine user cigarettes Packs smoked per day: 0.5 Alcohol intake: never Substance/Drug Use: never Vitals/I&O/Wt Last Vital Signs Temp 97.5 F L 03/07/24 07:53 Pulse 69 03/07/24 07:53 Resp 18 03/07/24 07:53 BP 146/85 03/07/24 07:53 Pulse Ox 95 03/07/24 07:53 O2 Del Method Room Air 03/07/24 07:53 Weight last 48 hrs Weight 261 lb Data 03/07/24 08:04 A&P Assessment and plan (1) GI bleed: Plan EGD and colonoscopy Attestations 2 Medical Necessity Statement*: Home Coding Level of Care Code Acute Code for Chg Fwd Diagnoses GI bleed K92.2
[2024-03-07 09:10] VITALS: BP 109/54; PULSE 65; RESP 16; TEMP 36.2; O2SAT 95
[2024-03-07 09:25] VITALS: BP 106/51; PULSE 65; RESP 18; O2SAT 97
--- NOTE | 2024-03-07 09:35 | ANE.PACU2 ---
Inpatient post-anesthesia follow up: Airway intact: Yes Vital signs: Temperature 97.2 F Pulse Rate 65 Respiratory Rate 18 Blood Pressure 106/51 Pulse Oximetry 97 Oxygen Delivery Me thod Room Air Oxygen Flow Rate 3 Fraction of Inspir ed Oxygen Hydration adequate: Yes Nausea and vomiting: No Pain level: 1 Mental status: Baseline
== END 2024-03-07 09:35 | disposition home or self-care (01) ==
PROVIDERS: Student in an Organized Health Care Education/Training Program; PCP Internal Medicine; Visit Provider Surgery
PROC: 0DJ08ZZ Inspection of Upper Intestinal Tract, Via Natural or Artificial Opening Endoscopic (ICD-10-PCS; CPT 43235; principal; 2024-03-07 08:45)
PROC: 0DJD8ZZ Inspection of Lower Intestinal Tract, Via Natural or Artificial Opening Endoscopic (ICD-10-PCS; CPT 45378; 2024-03-07 08:45)
DX: D12.3 Benign neoplasm of transverse colon (principal); K29.70 Gastritis, unspecified, without bleeding; K64.8 Other hemorrhoids; F32.A Depression, unspecified; I10 Essential (primary) hypertension; I25.2 Old myocardial infarction; E11.9 Type 2 diabetes mellitus without complications; K21.9 Gastro-esophageal reflux disease without esophagitis; G47.33 Obstructive sleep apnea (adult) (pediatric); J44.9 Chronic obstructive pulmonary disease, unspecified; F17.210 Nicotine dependence, cigarettes, uncomplicated; F41.1 Generalized anxiety disorder
CPT/HCPCS: 36416; 43239; 45385; 82962; 84132; 88305; J2704; J7030

== ENCOUNTER → 2024-03-09 10:22 | Outpatient (BNVA) | payer MEDICARE, MEDICAID, SELFPAY | PROVIDERS: PCP Internal Medicine; Visit Provider Nurse Practitioner Psychiatric/Mental Health | DX: Z79.899 Other long term (current) drug therapy (principal) | CPT/HCPCS: 80061; 83036 ==

== ENCOUNTER 2024-03-26 23:29 | Outpatient (CLI) | payer MEDICARE, MEDICAID, SELFPAY | END 2024-03-26 23:30 | disposition home or self-care (01) | LOC: SLEEP 23:30 | PROVIDERS: PCP Internal Medicine; Visit Provider Nurse Practitioner Family | DX: G47.33 Obstructive sleep apnea (adult) (pediatric) (principal); G47.36 Sleep related hypoventilation in conditions classified elsewhere | CPT/HCPCS: 95810 ==

== ENCOUNTER → 2024-04-09 08:11 | Outpatient (BNVA) | payer MEDICARE, MEDICAID, SELFPAY | PROVIDERS: PCP Internal Medicine; Visit Provider Surgery | DX: Z09 Encounter for follow-up examination after completed treatment for conditions other than malignant neoplasm (principal); K64.8 Other hemorrhoids; D37.4 Neoplasm of uncertain behavior of colon | CPT/HCPCS: 99214 ==

== ENCOUNTER → 2024-06-18 09:27 | Outpatient (BNVA) | payer MEDICARE, MEDICAID, SELFPAY | PROVIDERS: PCP Internal Medicine; Visit Provider Podiatrist Foot & Ankle Surgery | DX: E11.8 Type 2 diabetes mellitus with unspecified complications (principal); L60.8 Other nail disorders; B35.1 Tinea unguium; Z79.84 Long term (current) use of oral hypoglycemic drugs | CPT/HCPCS: 99213 ==

== ENCOUNTER → 2024-07-09 13:27 | Outpatient (BNVA) | payer MEDICARE, MEDICAID, SELFPAY | PROVIDERS: PCP Internal Medicine; Visit Provider Anesthesiology Pain Medicine | DX: M54.2 Cervicalgia; M17.0 Bilateral primary osteoarthritis of knee; E66.01 Morbid (severe) obesity due to excess calories; M51.16 Intervertebral disc disorders with radiculopathy, lumbar region | CPT/HCPCS: 99214 ==

== ENCOUNTER → 2024-07-25 10:22 | Outpatient (BNVA) | payer MEDICARE, MEDICAID, SELFPAY | PROVIDERS: PCP Internal Medicine; Visit Provider Anesthesiology Pain Medicine | DX: M17.0 Bilateral primary osteoarthritis of knee (principal) | CPT/HCPCS: 20610; J1010; J3490 ==

== ENCOUNTER 2024-08-01 20:00 | Outpatient (CLI) | payer MEDICARE, MEDICAID, SELFPAY | END 2024-08-01 20:01 | disposition home or self-care (01) | LOC: SLEEP 22:54 | PROVIDERS: PCP Internal Medicine; Visit Provider Nurse Practitioner Family | DX: G47.33 Obstructive sleep apnea (adult) (pediatric) (principal); G47.36 Sleep related hypoventilation in conditions classified elsewhere | CPT/HCPCS: 95811 ==

== ENCOUNTER → 2024-08-21 14:15 | Outpatient (BNVA) | payer MEDICARE, MEDICAID, SELFPAY | PROVIDERS: PCP Internal Medicine; Visit Provider Student in an Organized Health Care Education/Training Program | DX: M17.0 Bilateral primary osteoarthritis of knee (principal) | CPT/HCPCS: 73560; 73565; 99204 ==

== ENCOUNTER → 2024-09-12 13:23 | Outpatient (BNVA) | payer MEDICARE, MEDICAID, SELFPAY | PROVIDERS: PCP Internal Medicine; Visit Provider Physician Assistant | DX: M17.0 Bilateral primary osteoarthritis of knee (principal) | CPT/HCPCS: 20610; 99213; J7318 ==

== ENCOUNTER 2024-09-18 06:00 | Outpatient (RCR) | payer MEDICARE, MEDICAID, SELFPAY | END 2024-10-17 23:59 | disposition home or self-care (01) | LOC: APT 06:00 | PROVIDERS: PCP Internal Medicine; Visit Provider Nurse Practitioner Family | DX: I87.2 Venous insufficiency (chronic) (peripheral) (principal) | CPT/HCPCS: 97163 ==

== ENCOUNTER 2024-11-29 16:50 | Emergency (ER) | payer MEDICARE, MEDICAID, SELFPAY ==
[2024-11-29 16:57] VITALS: BP 161/78; PULSE 85; RESP 18; TEMP 36.7; O2SAT 94; BMI 48.4
[2024-11-29 18:00] VITALS: BP 139/86; PULSE 78; O2SAT 92
--- NOTE | 2024-11-29 18:31 | W.ED.EXTPRO ---
HPI - Extremity Problem General: Chief complaint: Extremity Problem,Nontraumatic Stated complaint: right foot/leg rash with pain Time Seen by Provider: 11/29/24 17:40 History of Present Illness: The 64 year old female patient presents with redness and warmth of the right leg, extending from the foot to nearly the knee. The patient noticed red spots on the top of the right foot yesterday, which progressed to significant redness by this morning. The patient describes a sensation of something under the foot pad, jeremiah to a pimple. The patient has a history of leg issues and stasis dermatitis, which causes discoloration due to abnormal blood flow. The patient reports that the right leg is redder than usual, and the condition was concerning enough for the nurse to recommend an immediate visit. The patient denies recent episodes of cellulitis and has no known allergies to antibiotics. Related Data Home Medications ?Medication ?Instructions ?Recorded ?Confirmed montelukast 10 mg tablet 10 mg PO DAILY 08/22/19 10/08/24 (Singulair) potassium chloride 10 mEq 10 meq PO DAILY 08/22/19 10/08/24 capsule,extended release losartan 50 mg tablet 50 mg PO DAILY 04/21/21 10/08/24 metformin 750 mg tablet,extended 750 mg PO DAILY 07/29/21 10/08/24 release 24 hr ozempic See Rx Instructions .Route .COMPLEX 12/29/22 10/08/24 aspirin 500 mg tablet 2,000 mg PO DAILY 03/01/24 10/08/24 Held on 03/07/24. Instructions: Resume on 03/09/24. furosemide 40 mg tablet 100 mg PO DAILY 03/05/24 10/08/24 simvastatin 20 mg tablet 20 mg PO DAILY 03/05/24 10/08/24 gabapentin 300 mg capsule 300 mg PO DAILY 07/25/24 10/08/24 Previous Rx's ?Medication ?Instructions ?Recorded pantoprazole 40 mg tablet,delayed 40 mg PO BID #180 tabs 03/07/24 release aripiprazole 2 mg tablet (Abilify) 2 mg PO QAM #90 tabs 10/08/24 bupropion HCl 300 mg 24 hr tablet, 300 mg PO QAM #90 tabs 10/08/24 extended release (Wellbutrin XL) alprazolam 1 mg tablet 1 mg PO TID PRN anxiety #90 tabs 11/19/24 cephalexin 500 mg capsule 500 mg PO Q8H 7 days #21 caps 11/29/24 Allergies Allergy/AdvReac Type Severity Reaction Status Date / Time No Known Allergies Allergy Verified 11/29/24 18:32 Review of Systems General: Reports: 10 or more systems reviewed and unremarkable except in HPI and below PFSH ED PFSH: Medical History Tubular adenoma of colon Depression Hypertension History of [place] (myocardial infarction) In her 30s History of DVT (deep vein thrombosis) as a teenager Diabetes Bereavement Sudden loss of son, February 09, 2020-Birthday anniversary of son is 10/15 Sudden loss of brother, August 21, 2022 Psychiatric care GERD (gastroesophageal reflux disease) Gastritis Bleeding per rectum Obstructive sleep apnea COPD (chronic obstructive pulmonary disease) Nicotine dependence, cigarettes, uncomplicated Generalized anxiety disorder Major depressive disorder, recurrent episode, moderate with anxious distress Surgical History History of colonoscopy History of esophagogastroduodenoscopy (EGD) History of hysterectomy History of cholecystectomy History of surgery on right wrist Family History Other Cancer Diabetes Obesity Social History Smoking and tobacco/nicotine status: current every day tobacco/nicotine user (about a pack a day) cigarettes Packs smoked per day: 0.5 Alcohol intake: never Substance/Drug Use: never Marital status: Physical Exam Const: COMMON NORMALS: no acute distress, patient oriented x3, alert and well nourished HENMT: COMMON NORMALS: normocephalic HEAD & SCALP: normocephalic Eye: COMMON NORMALS: Equal, round and reactive pupils present, EOMs intact bilaterally and conjunctivae normal CONJUNCTIVA: Yes conjunctivae normal PUPIL: Yes Equal, round and reactive pupils present Chest: COMMONS NORMALS: normal inspection of the chest and normal palpation of entire chest wall Resp: COMMON NORMALS: normal respiratory effort, No retractions, No use of accessory muscles, clear to auscultation bilaterally and percussion normal AUSCULTATION: clear to auscultation bilaterally PERCUSSION: percussion normal GI: COMMON NORMALS: Normal to inspection, nondistended, normoactive bowel sounds present, Soft to palpation, non-tender, No hepatosplenomegaly present, no masses and no bruits PALPATION: Yes Soft to palpation and Yes No hepatosplenomegaly present Extremity: NARRATIVE EXTREMITY EXAM: Warm, erythema and tender to touch RLE. Marked difference from mild erythema without warmth or tenderness on contra-lateral leg. Neuro: COMMON NORMALS: patient oriented x3 SENSORIUM/ORIENTATION: Yes alert Skin: COMMON NORMALS: no rashes or lesions noted, turgor normal and no jaundice GENERAL SKIN EXAM: no rashes or lesions noted and turgor normal Course Vital Signs: Vital signs: Vital Signs Temperature 98.0 F 11/29/24 16:57 Pulse Rate 78 11/29/24 18:00 Respiratory Rate 18 11/29/24 16:57 Blood Pressure 139/86 11/29/24 18:00 Pulse Oximetry 92 11/29/24 18:00 Oxygen Delivery Me thod Room Air 11/29/24 18:00 MDM - Extremity (Nontraumatic) Medical Decision Making 1. Suspected Cellulitis of the Right Leg: The patient exhibits signs of cellulitis, likely secondary to stasis dermatitis. Initiate treatment with cephalexin (Keflex) to address the infection. Due to the time of day, administer an initial dose via injection to ensure prompt therapeutic levels. 2. Stasis Dermatitis: The patient has a known history of stasis dermatitis, contributing to the discoloration and potential for skin breakdown. Advise continued weight loss as it may improve venous circulation and reduce symptoms. Educate the patient on monitoring for signs of infection and maintaining skin integrity. 3. Follow-up: Schedule a follow-up appointment to assess the response to treatment and adjust the management plan as necessary. Instruct the patient to seek immediate care if symptoms worsen or if new symptoms develop. Differential Diagnosis Likely cellulitis, superficial thrombophlebitis and deep vein thrombosis of lower extremity No radiology studies performed this visit Discharge Plan Discharge Patient Disposition: Home Clinical Impression: Morbid obesity, Type 2 diabetes mellitus without complications Cellulitis Qualifiers: Site of cellulitis: extremity Site of cellulitis of extremity: lower extremity Laterality: right Qualified Code(s): L03.115 - Cellulitis of right lower limb Condition: Stable Prescriptions: New cephalexin 500 mg capsule 500 mg PO Q8H 7 Days Qty: 21 0RF No Action metformin 750 mg tablet extended release 24 hr 750 mg PO DAILY potassium chloride 10 mEq capsule, extended release 10 meq PO DAILY montelukast [Singulair] 10 mg tablet 10 mg PO DAILY losartan 50 mg tablet 50 mg PO DAILY ozempic See Rx Instructions .ROUTE .COMPLEX Rx Instructions: 5 mg subcutaneously weekly aripiprazole [Abilify] 2 mg tablet 2 mg PO QAM Qty: 90 2RF Rx Instructions: Take one tablet every morning bupropion HCl [Wellbutrin XL] 300 mg tablet extended release 24 hr 300 mg PO QAM Qty: 90 2RF Rx Instructions: Take one tablet every morning gabapentin 300 mg capsule 300 mg PO DAILY alprazolam 1 mg tablet 1 mg PO TID PRN (Reason: anxiety) Qty: 90 3RF Rx Instructions: Take one tablet three times per day as needed for anxiety aspirin 500 mg Tablet 2,000 mg PO DAILY furosemide 40 mg tablet 100 mg PO DAILY simvastatin 20 mg tablet 20 mg PO DAILY pantoprazole 40 mg tablet,delayed release (DR/EC) 40 mg PO BID Qty: 180 0RF Discharge Orders: Discharge ED (Routine); Ordered 11/29/24 Ordered By: Capo Fulton Referrals: Alecia Trevino MD [Primary Care Provider, Internal Medicine] Patient Instructions: Opioid Safety, Pain Management Print Language: Spanish Coding Level of Care Code ED [employer] for Олег Rincon
[2024-11-29] MEDS: cefTRIAXone 1,000 MG in water for injection-sterile 2.1 ML 999 MG IM (18:35)
[2024-11-29 19:02] VITALS: BP 147/85; PULSE 79; O2SAT 93
== END 2024-11-29 19:04 | disposition home or self-care (01) ==
PROVIDERS: Emergency Provider Family Medicine; PCP Internal Medicine
DX: L03.115 Cellulitis of right lower limb (principal); I25.2 Old myocardial infarction; E11.9 Type 2 diabetes mellitus without complications; F17.210 Nicotine dependence, cigarettes, uncomplicated; G47.33 Obstructive sleep apnea (adult) (pediatric); J44.9 Chronic obstructive pulmonary disease, unspecified; Z79.899 Other long term (current) drug therapy; Z79.84 Long term (current) use of oral hypoglycemic drugs; Z79.85 Long-term (current) use of injectable non-insulin antidiabetic drugs; Z79.82 Long term (current) use of aspirin; I10 Essential (primary) hypertension; Z86.718 Personal history of other venous thrombosis and embolism; E66.01 Morbid (severe) obesity due to excess calories; Z68.42 Body mass index [BMI] 45.0-49.9, adult
CPT/HCPCS: 96372; 99284; J0696

== ENCOUNTER 2024-12-24 17:42 | Emergency (ER) | payer MEDICARE, MEDICAID, SELFPAY ==
[2024-12-24 17:45] VITALS: BP 137/84; PULSE 85; TEMP 36.6; O2SAT 95; BMI 49.4
--- OUTSIDE RECORDS SUMMARY | 2024-12-24 17:47 | XMS_ITS ---
Laboratory report Created on: December 22, 2024 KAYLA GOYAL : 1960 Sex: Female Author Name MILLICENT AGRAWAL Unknown PROBLEMS Problems List Code Description E11.9 E78.5 RESULTS Laboratory Orders Date Order Code Test 2024-12-19 [id number] CMP14+CBC/D/PLT+ TSH 2024-12-19 [id number] LIPID PANEL W/ C HOL/HDL RATIO 2024-12-19 [id number] HEMOGLOBIN A1C Laboratory Results Date LOINC Test Value Unit Reference Range Interpre tation 2024-12-19 2345-7 GLUCOSE 82 MG/DL 70-99 2024-12-19 3094-0 BUN 11 MG/DL 8-27 2024-12-19 2160-0 CREATININE .89 MG/DL 0.57-1.00 2024-12-19 22032-2 EGFR 72 ML/MIN/1.73 >59 2024-12-19 3097-3 BUN/CREATININE RATIO 12 12-2024-12-19 2951-2 SODIUM 139 MMOL/L 557-967 2320-07-02 2823-3 POTASSIUM 4.4 MMOL/L 3.5-5.2 2024-12-19 2075-0 CHLORIDE 99 MMOL/L 96-106 2024-12-19 2028-9 CARBON DIOXIDE, TOTAL 25 MMOL/L 20-29 2024-12-19 39411-7 CALCIUM 9.2 MG/DL 8.7-10.3 2024-12-19 2885-2 PROTEIN, TOTAL 6.7 G/DL 6.0-8.5 2024-12-19 1751-7 ALBUMIN 3.8 G/DL 3.9-4.9 L 2024-12-19 83390-7 GLOBULIN, TOTAL 2.9 G/DL 1.5-4.5 2024-12-19 1975-2 BILIRUBIN, TOTAL <0.2 MG/DL 0.0-1.2 2024-12-19 6768-6 ALKALINE PHOSPHATASE 99 IU/L 44-121 2024-12-19 1920-8 AST (SGOT) 15 IU/L 0-40 2024-12-19 1742-6 ALT (SGPT) 9 IU/L 0-32 2024-12-19 16035-9 TSH 1.03 UIU/ML 0.450-4.500 2024-12-19 6690-2 WBC 7.7 X10E3/UL 3.4-10.8 2024-12-19 789-8 RBC 5.1 X10E6/UL 3.77-5.28 2024-12-19 718-7 HEMOGLOBIN 11.9 G/DL 11.1-15.9 2024-12-19 4544-3 HEMATOCRIT 38.8 % 34.0-46.6 2024-12-19 787-2 MCV 76 FL 79-97 L 2024-12-19 785-6 MCH 23.3 PG 26.6-33.0 L 2024-12-19 786-4 MCHC 30.7 G/DL 31.5-35.7 L 2024-12-19 788-0 RDW 15.2 % 11.7-15.4 2024-12-19 777-3 PLATELETS 399 X10E3/UL 522-484 8829-07-02 770-8 NEUTROPHILS 72 % 2024-12-19 736-9 LYMPHS 21 % 2024-12-19 5905-5 MONOCYTES 6 % 2024-12-19 713-8 EOS 1 % 2024-12-19 706-2 BASOS 0 % 2024-12-19 751-8 NEUTROPHILS (ABSOLUTE) 5.5 X10E3/UL 1.4-7.0 2024-12-19 731-0 LYMPHS (ABSOLUTE) 1.7 X10E3/UL 0.7-3.1 2024-12-19 742-7 MONOCYTES(ABSOLUTE) .5 X10E3/UL 0.1-0.9 2024-12-19 711-2 EOS (ABSOLUTE) .1 X10E3/UL 0.0-0.4 2024-12-19 704-7 BASO (ABSOLUTE) 0 X10E3/UL 0.0-0.2 2024-12-19 86121-5 IMMATURE GRANULOCYTES 0 % 2024-12-19 35025-3 IMMATURE GRANS (ABS) 0 X10E3/UL 0.0-0.1 2024-12-193-3 CHOLESTEROL, TOTAL 134 MG/DL 584-703 0097-07-02 2571-8 TRIGLYCERIDES 72 MG/DL 0-149 2024-12-195-9 HDL CHOLESTEROL 42 MG/DL >39 2024-12-19 16139-1 VLDL CHOLESTEROL BRITTNEY 15 MG/DL 5-40 2024-12-19 12558-8 LDL CHOL CALC ([facility]) 77 MG/DL 0-99 2024-12-19 9830-1 T CHOL/HDL RATIO 3.2 RATIO 0.0-4.4 2024-12-19 4548-4 HEMOGLOBIN A1C 5.5 % 4.8-5.6
--- NOTE | 2024-12-24 19:26 | XRR_ITS ---
PROCEDURE INFORMATION: Exam: XR Right Knee Exam date and time: 12/24/2024 7:56 PM Age: 64 years old Clinical indication: Left; RT knee pain/swelling; No known injury; Very limited rom; Additional info: Nontraumatic pain, unable to bear weight TECHNIQUE: Imaging protocol: Radiologic exam of the right knee. Views: 3 views. COMPARISON: CR XR knees AP WB w BI lmt ORTH 08/21/2024 2:16 PM FINDINGS: Bones/joints: Osteopenia. No radiographic evidence of acute fracture or dislocation. Alignment anatomic. Moderate tricompartmental osteoarthrosis. No significant effusion. Soft tissues: Mild soft tissue swelling. XR/XR knee RT 3V* [id number] IMPRESSION: 1. Moderate tricompartmental osteoarthrosis and small effusion. 2. Additional findings, as above.
--- NOTE | 2024-12-24 19:26 | USR_ITS ---
PROCEDURE INFORMATION: Exam: US Duplex Right Lower Extremity Veins, Limited Exam date and time: 12/24/2024 7:58 PM Age: 64 years old Clinical indication: Edema, localized; Lower extremity, right; No history of dvt per patient, but she affirms history of venous stasis with profound, chronic, bilateral gaiter zone pigmentation, erythema and blistering. ; Additional info: R/O dvt TECHNIQUE: Imaging protocol: Real-time duplex ultrasound of the right extremity with 2-D nugent scale, color Doppler flow and spectral waveform analysis including responses to compression and other maneuvers (when performed) with image documentation. Limited exam was focused on the right lower extremity veins. COMPARISON: CR (LOW EXM, ) 12/24/2024 7:56 PM FINDINGS: Right deep veins: Unremarkable. The common femoral, femoral, proximal profunda femoral, popliteal, posterior tibial and peroneal veins are patent without thrombus. Normal Doppler waveforms. Normal compressibility and/or augmentation response. Superficial veins: Greater saphenous vein at the saphenofemoral junction is patent without thrombus. Soft tissues: Unremarkable. US/[place] [id number] IMPRESSION: No sonographic evidence of deep vein thrombosis.
--- NOTE | 2024-12-24 19:43 | ED_ITS ---
HPI - Extremity Problem General: Chief complaint: Extremity Problem,Nontraumatic Stated complaint: R leg pain, unable to walk Time Seen by Provider: 12/24/24 18:42 Source: patient Mode of arrival: wheelchair Limitations: no limitations History of Present Illness: 64yo female with a history of venous ins ufficiency, hypertension, COPD, and DVT as a teenager presents for right knee pain that is chronic in nature, but has recently worsened to the point where she cannot bear weight. Patient states she has not been walking for the past several days due to the pain. She states she has been using an office chair to scoot around her house. She reports she has been evaluated for knee replacement, but does have to lose weight prior to being able to undergo the procedure. She states she has significant pain to the knee when she does attempt to bear weight. Reports that she does not take any blood thinners, but does take approximately 1000 mg of Shaun aspirin daily in order to walk due to her chronic pain. Patient denies fall, trauma, known injury, back pain, any other concern at this time. Patient does report she was seen last week by her primary care who thought she may have bursitis issues in the hip. Associated symptoms: Deny chest pain or fever(s) Related Data Home Medications ?Medication ?Instructions ?Recorded ?Confirmed montelukast 10 mg tablet 10 mg PO DAILY 08/22/1908/14 (Singulair) potassium chloride 10 mEq 10 meq PO DAILY 08/22/1908/14 capsule,extended release losartan 50 mg tablet 50 mg PO DAILY 04/21/2108/14 metformin 750 mg tablet,extended 750 mg PO DAILY 07/2912/19/24 release 24 hr ozempic See Rx Instructions .Route . COMPLEX 12/29/22 12/19/24 aspirin 500 mg tablet 2,000 mg PO DAILY 03/01/24 0 12/19/24 Held on 03/07/24. Instructions: Resume on 03/09/24. furosemide 40 mg tablet 100 mg PO DAILY 03/05/2408/14 simvastatin 20 mg tablet 20 mg PO DAILY 03/05/2408/14 gabapentin 300 mg capsule 300 mg PO DAILY 07/25/2408/14 Previous Rx's ?Medication ?Instructions ?Recorded pantoprazole 40 mg tablet,delayed 40 mg PO BID #180 ta bs 03/07/24 release aripiprazole 2 mg tablet (Abilify) 2 mg PO QAM #90 tab s 10/08/24 bupropion HCl 300 mg 24 hr tablet, 300 mg PO QAM #90 t abs 10/08/24 extended release (Wellbutrin XL) alprazolam 1 mg tablet 1 mg PO TID PRN anxiety #90 tabs 11/19/24 diclofenac sodium 1 % topical gel 2 g topical QID #100 grams 12/24/24 (Arthritis Pain (diclofenac)) Allergies Allergy/AdvReac Type Severity Reaction Status Date / Time No Known Allergies Allergy Verified 12/24/24 17:50 Review of Systems Const: Denies: fever(s), chills or body aches Card: Denies: chest pain Resp: Denies: dyspnea Musc: Reports: extremity pain (right knee with weight bearing) PFS ED PFSH: Medical History Tubular adenoma of colon Depression Hypertension History of DE (myocardial infarction) In her 30s History of DVT (deep vein thrombosis) as a teenager Diabetes Bereavement Sudden loss of son, February 09, 2020-Birthday anniversary of son is 10/15 Sudden loss of brother, August 21, 2022 Psychiatric care GERD (gastroesophageal reflux disease) Gastritis Bleeding per rectum Obstructive sleep apnea COPD (chronic obstructive pulmonary disease) Nicotine dependence, cigarettes, uncomplicated Generalized anxiety disorder Major depressive disorder, recurrent episode, moderate with anxious distress Surgical History History of colonoscopy History of esophagogastroduodenoscopy (EGD) History of hysterectomy History of cholecystectomy History of surgery on right wrist Family History Other Cancer Diabetes Obesity Social History Smoking and tobacco/nicotine status: current every day tobacco/nicotine user (about a pack a day) cigarettes Packs smoked per day: 0.5 Alcohol intake: never Substance/Drug Use: never Marital status: Physical Exam Const: COMMON NORMALS: no acute distress, patient oriented x3 and alert NUTRITIONAL APPEARANCE: obese ORIENTATION/CONSCIOUSNESS: Yes awake OTHER: Patient is sitting upright in a wheelchair in no acute distress. She is able to give history with no difficulty. She is interactive with exam appropriately. No family is at bedside HENMT: COMMON NORMALS: normocephalic and atraumatic HEAD & SCALP: normocephalic and atraumatic Chest: CHEST: Yes Symmetrical chest wall rise Resp: COMMON NORMALS: normal respiratory effort EFFORT & INSPECTION: Yes able to speak in complete sentences Extremity: RIGHT LOWER EXTREMITY: Yes knee joint Right knee: Yes palpation (tenderness superior knee musculature, bilaterally) and Yes ROM (decreased extension d/t pain) Neuro: COMMON NORMALS: patient oriented x3 SENSORIUM/ORIENTATION: Yes alert Skin: GENERAL SKIN EXAM: erythema (right lower leg below knee to above ankle, chronic venous stasis) Course Vital Signs: Vital signs: Vital Signs Temperature 97.9 F 12/24/24 17:45 Pulse Rate 85 12/24/24 17:45 Blood Pressure 137/84 12/24/24 17:45 Pulse Oximetry 95 12/24/24 17:45 Oxygen Delivery Me thod Room Air 12/24/24 17:45 MDM - Extremity (Nontraumatic) Medical Decision Making 64yo female with a history of venous insufficiency, hypertension, COPD, and DVT as a teenager presents for right knee pain that is chronic in nature, but has recently worsened to the point where she cannot bear weight. Patient states she has not been walking for the past several days due to the pain. Patient is nontoxic in appearance. Vital signs are stable. Will proceed with x-ray as well as ultrasound to rule out DVT since patient has not been ambulating for the past few days. No DVT noted on ultrasound. X-ray reveals moderate tricompartmental osteoarthritis and a small effusion. Discussed these findings with patient. Advised the osteoarthritis is likely the cause of the pain. Discussed with patient the absolute importance of being mobile and not sedentary to prevent blood clots. Patient does not have a walker, but does request crutches in order to ambulate. Discussed with patient increased fall risk with crutches, but will proceed in order to keep patient ambulatory. Patient did receive ketorolac while in the emergency department. Prescription of diclofenac gel has been sent to her pharmacy. Encourage patient to contact her orthopedist tomorrow to discuss the increased pain and difficulty with ambulation. Return precautions provided. Patient states understanding and has no further questions or concerns at this time. Medical Records I reviewed the patient's medical records. Lab Data Radiology Impressions Knee X-Ray 12/24/24 19:26 IMPRESSION: 1. Moderate tricompartmental osteoarthrosis and small effusion. 2. Additional findings, as above. Venous Duplex 12/24/24 19:26 IMPRESSION: No sonographic evidence of deep vein thrombosis. All radiology interpretation(s) finalized by discharge Discharge Plan Discharge Patient Disposition: Home Clinical Impression: Tricompartment osteoarthritis of right knee, Acute pain of right knee Condition: Stable Prescriptions: New diclofenac sodium [Arthritis Pain (diclofenac)] 1 % gel 2 g topical QID Qty: 100 0RF Rx Instructions: apply to right knee No Action metformin 750 mg tablet extended release 24 hr 750 mg PO DAILY potassium chloride 10 mEq capsule, extended release 10 meq PO DAILY montelukast [Singulair] 10 mg tablet 10 mg PO DAILY losartan 50 mg tablet 50 mg PO DAILY ozempic See Rx Instructions .ROUTE .COMPLEX Rx Instructions: 5 mg subcutaneously weekly aripiprazole [Abilify] 2 mg tablet 2 mg PO QAM Qty: 90 2RF Rx Instructions: Take one tablet every morning bupropion HCl [Wellbutrin XL] 300 mg tablet extended release 24 hr 300 mg PO QAM Qty: 90 2RF Rx Instructions: Take one tablet every morning gabapentin 300 mg capsule 300 mg PO DAILY alprazolam 1 mg tablet 1 mg PO TID PRN (Reason: anxiety) Qty: 90 3RF Rx Instructions: Take one tablet three times per day as needed for anxiety aspirin 500 mg Tablet 2,000 mg PO DAILY furosemide 40 mg tablet 100 mg PO DAILY simvastatin 20 mg tablet 20 mg PO DAILY pantoprazole 40 mg tablet,delayed release (DR/EC) 40 mg PO BID Qty: 180 0RF Discharge Orders: Discharge ED (Routine); Ordered 12/24/24 Ordered By: Sidney Reis Referrals: Sonia Wheeler DO [Primary Care Provider, PEDIATRIC SPORTS MEDICINE SPECIALIST] Patient Instructions: Osteoarthritis (ED), Pain Management, Patient Portal & [facility] Instructions Activity Restrictions/Additional Instructions: No new findings noted on the x-ray of the knee. You do have moderate osteoarthritis, which is likely causing the pain Prescription of diclofenac gel has been sent to the pharmacy to use topically to help with the knee pain Crutches have been provided to help with ambulation. It is very important that you stay mobile to avoid blood clots and pneumonia Please call your orthopedist tomorrow to discuss the pain and difficulty with movement Return to the emergency department if any further injury, rapid worsening symptoms, and as needed Print Language: Mongolian Coding Level of Care Code ED Lean Consultant for Олег Rincon
[2024-12-24 22:04] VITALS: BP 131/58; PULSE 75; O2SAT 93
== END 2024-12-24 22:06 | disposition home or self-care (01) ==
PROVIDERS: Emergency Provider Nurse Practitioner; PCP Family Medicine
DX: M17.11 Unilateral primary osteoarthritis, right knee (principal); Z79.84 Long term (current) use of oral hypoglycemic drugs; Z79.82 Long term (current) use of aspirin; F17.210 Nicotine dependence, cigarettes, uncomplicated; J44.9 Chronic obstructive pulmonary disease, unspecified; I10 Essential (primary) hypertension
CPT/HCPCS: 73562; 93971; 96372; 99284; J1885

== ENCOUNTER → 2024-12-26 13:42 | Outpatient (BNVA) | payer MEDICARE, MEDICAID, SELFPAY | PROVIDERS: PCP Family Medicine; Visit Provider Physician Assistant | DX: M25.561 Pain in right knee (principal); M17.0 Bilateral primary osteoarthritis of knee | CPT/HCPCS: 20610; 99213; J3301; J9999 ==

== ENCOUNTER 2025-01-21 10:24 | Outpatient (CLI) | payer MEDICARE, MEDICAID, SELFPAY ==
--- NOTE | 2025-01-21 10:30 | CT_ITS ---
WS: [id number] LDCT LUNG CANCER SCREENING HISTORY: NICOTINE DEPENDENCE, CIGARETTES TECHNIQUE: Axial imaging performed from the apices to 1 cm below the costophrenic angles. Coronal and sagittal reformats are submitted with axial MIP series. All CT scans at [facility] use at least one of these dose optimization techniques: automated exposure control; mA and/or kV adjustment per patient size (includes targeted exams where dose is matched to clinical indication); or iterative reconstruction. DLP: 195.30 mGy.cm DIvol: Mean CTDIvol: 5.80 (mGy) COMPARISON: 11/23/2023 Diagnostic quality: Satisfactory Lungs: Reidentified is the micronodule peripheral LEFT upper lobe. No increase in size of this micronodule. There is mild motion artifact. No new or enlarging mass or nodules. Heart: Normal size heart with no pericardial effusion.. Other findings: Mild atherosclerosis aorta. Normal size pulmonary artery. No adenopathy. Small hiatal hernia. Prior cholecystectomy. Visualized adrenal glands are negative. CT/CT lung screening [id number] IMPRESSION: LUNG-RADS: 2-Benign Appearance or Behavior FOLLOW UP: 12 Month: Continue annual screening with LDCT OTHER FINDINGS (S MODIFIER): None.
== END 2025-01-21 10:25 | disposition home or self-care (01) ==
LOC: RAD 10:26
PROVIDERS: PCP Family Medicine; Visit Provider Family Medicine
DX: Z12.2 Encounter for screening for malignant neoplasm of respiratory organs (principal); F17.210 Nicotine dependence, cigarettes, uncomplicated; R91.1 Solitary pulmonary nodule; I70.0 Atherosclerosis of aorta; Z90.49 Acquired absence of other specified parts of digestive tract; K44.9 Diaphragmatic hernia without obstruction or gangrene
CPT/HCPCS: 71271

== ENCOUNTER → 2025-02-26 14:18 | Outpatient (BNVA) | payer MEDICARE, MEDICAID, SELFPAY | PROVIDERS: PCP Family Medicine; Visit Provider Student in an Organized Health Care Education/Training Program | DX: M17.0 Bilateral primary osteoarthritis of knee (principal) | CPT/HCPCS: 99213 ==

== ENCOUNTER 2025-03-19 15:55 | Outpatient (CLI) | payer MEDICARE, MEDICAID, SELFPAY ==
--- NOTE | 2025-03-19 16:13 | XR_ITS ---
WS: [id number] XR sacrum coccyx min 2V [id number] REASON FOR EXAM: BONY PELVIC PAIN FINDINGS: Sacrum and coccyx are intact without fracture. No focal bone lesion. Normal sacroiliac joints. XR/XR sacrum coccyx min 2V [id number] IMPRESSION: No significant abnormality.
--- NOTE | 2025-03-19 16:13 | XR_ITS ---
WS: [id number] XR hip BI 3-4V wo/w pel [id number] REASON FOR EXAM: BONY PELVIC PAIN FINDINGS: RIGHT HIP: No fracture or focal bone lesion. Mild narrowing of the joint space with moderate subchondral sclerosis and osteophytosis of the acetabulum. Minimal osteophytosis of the femoral head. XR/XR hip BI 3-4V wo/w pel [id number] IMPRESSION: Mild osteoarthritis of the right hip. LEFT HIP: No fracture or focal bone lesion. Mild narrowing of the anterior superior joint space joint space and moderate narrowing of the posterior inferior joint space with subchondral sclerosis and osteophytosis of the acetabulum. Minimal osteophytosis of the femoral head. IMPRESSION: Mild to moderate osteoarthritis of the left hip.
== END 2025-03-19 15:56 | disposition home or self-care (01) ==
LOC: RAD 15:59
PROVIDERS: PCP Family Medicine; Visit Provider Family Medicine
DX: M89.8X8 Other specified disorders of bone, other site (principal)
CPT/HCPCS: 72220; 73522

== ENCOUNTER → 2025-05-01 14:02 | Outpatient (BNVA) | payer MEDICARE, MEDICAID, SELFPAY | PROVIDERS: PCP Internal Medicine; Visit Provider Physician Assistant | DX: M17.11 Unilateral primary osteoarthritis, right knee (principal); M17.12 Unilateral primary osteoarthritis, left knee | CPT/HCPCS: 20610; 99213; J3301; J9999 ==